=== PATIENT | female | born 1985 ===

== ENCOUNTER → 2017-07-16 | Outpatient (CLI) | payer BC | END | disposition home or self-care (01) | LOC: MERGE 17:19 → C.RDSM 17:19 | PROVIDERS: ATTEND Family Medicine | DX: M79.671 Pain in right foot (principal) ==

== ENCOUNTER → 2017-08-19 | Outpatient (CLI) | payer BC | END | disposition home or self-care (01) | LOC: C.PAPS 10:50 | PROVIDERS: ATTEND Family Medicine | DX: Z12.72 Encounter for screening for malignant neoplasm of vagina (principal) ==